=== PATIENT | male | born 1980 | race Caucasian/White ===

== ENCOUNTER 2024-01-14 15:04 | Emergency (ER) | payer BC, SELFPAY ==
[2024-01-14 15:05] VITALS: BP 169/102
--- NOTE | 2024-01-14 15:49 | ED.GENMED ---
History of Present Illness
<Mariela Reyes PA-C - Last Filed: 01/14/24 19:51>
General
Chief Complaint: Musculo-Skeletal Complaint
Source: patient
Exam Limitations: none
Time Seen by Provider: 01/14/24 15:48
Nursing documentation reviewed up to this point in time: agreed with
Travel History
Have you had any contact with someone who has COVID-19?: No
Do you have any symptoms of coronavirus? Fever > 100 degrees, chills, cough, shortness of breath, sore throat, loss of taste or smell, muscle aches, or headache?: No
History of Present Illness
History of Present Illness:
This is a 43 y/o male with no PMH presenting to the ER today with left hand pain following a crush injury. This injury occurred last week. He states he was catching a box with his left hand when he caught it and his hand bent back and the box landed
on his hand. He initially did not have much pain and first and thought nothing of it, but subsequently developed significant hand pain and swelling over the following days. He states that he was seen at urgent care who did an x-ray which was normal
and he was started on Voltaren tablets. He states that he used this as well as ibuprofen and acetaminophen and has had no relief. He denies pain elsewhere, denies head trauma, denies other injuries. Patient denies parestheias.
Past History
<Mariela Reyes PA-C - Last Filed: 01/14/24 19:51>
Past History
ED Past Medical History: None
ED Past Surgical History: None
Social History
Tobacco: Non-smoker
Alcohol: Daily
Personal:
Living: with family
Employment: Employed (Construction)
Review of Systems
<Mariela Reyes PA-C - Last Filed: 01/14/24 19:51>
Review of Systems
All Other Systems: ROS reviewed and negative except as documented in HPI and ROS
Phy Exam
<Mariela Reyes PA-C - Last Filed: 01/14/24 19:51>
Physical Exam
Physical Exam:
General: patient is well appearing and in no acute distress
Skin: warm and dry, no rashes or lesions
Cardiac: regular rate
Pulm: normal respiratory effort
Musculoskeletal: left hand swelling noted, mild tenderness to palpation of the carpals/metacarpals. 2+ left radial and ulnar pulses. Patient has full range of motion of left upper extremity. Cap refill <2 seconds.
Course
<Mariela Reyes PA-C - Last Filed: 01/14/24 19:51>
Vital Signs
Initial and Last Documented VS:
Initial Vital Signs
Temp Pulse Resp BP Pulse Ox
37.1 C 98 18 169/102 95
01/14/24 15:05 01/14/24 15:05 01/14/24 15:05 01/14/24 15:05 01/14/24 15:05
Last Documented Vital Signs
Temp Pulse Resp BP Pulse Ox
37.1 C 98 18 169/102 95
01/14/24 15:05 01/14/24 15:05 01/14/24 15:05 01/14/24 15:05 01/14/24 15:05
<Rosendo Woo MD - Last Filed: 01/14/24 23:12>
Vital Signs
Initial and Last Documented VS:
Initial Vital Signs
Temp Pulse Resp BP Pulse Ox
37.1 C 98 18 169/102 95
01/14/24 15:05 01/14/24 15:05 01/14/24 15:05 01/14/24 15:05 01/14/24 15:05
Last Documented Vital Signs
Temp Pulse Resp BP Pulse Ox
37.1 C 98 18 169/102 95
01/14/24 15:05 01/14/24 15:05 01/14/24 15:05 01/14/24 15:05 01/14/24 15:05
<Mariela Reyes PA-C - Last Filed: 01/14/24 19:51>
MDM/Problems Addressed
Differential Diagnosis Includes:
ddx include musculoskeletal sprain/strain, metacarpal fracture, muscular contusion, hematoma, ulnar collateral ligament injury, compartment syndrome
MDM/Problems Addressed:
hand pain
Chronic conditions affecting care:
n/a
Acute Exacerbation and/or Progression of Chronic Illness:
n/a
<SYBIL Mcclain Last Filed: 01/14/24 19:51>
*Radiology
Radiology exam reviewed: preliminary read by ED provider (reviewed urgent care x-ray, no acute fracture/dislocation)
*Pulse Oximetry
Patient hypoxic: no
*Critical Care Note
Total Time (30-74mins, 75-104mins- exclusive of procedures): Not Applicable
Data Reviewed
Review of Other/Old Records Reveals: Records (reviewed ER Physician documentation from 09/01/22)
Prescriptions/Medications Considered But Not Given:
n/a
Further Testing Considered But Not Given:
n/a
<SYBIL Mcclain Last Filed: 01/14/24 19:51>
Patient Management
Escalation/DeEscalation of care consider admission/obs:
43 y/o male with no PMH presenting to the ER today with left hand pain following a crush injury. X-ray negative for acute fracture/dislocation. Was seen at urgent care a few days ago and started on Voltaren, ice packs, acetaminophen which has not
been helping his symptoms. We will send patient home with a few oxycodone tablets to relieve his pain until he follows up with hand specialist. Patient stable for discharge.
ED Attending Note
<Mariela Reyes PA-C - Last Filed: 01/14/24 19:51>
-
Portions of this chart may have been created with voice recognition software.� Occasional wrong word or��sound alike� substitutions may have occurred due to the inherent limitations of voice recognition software.
<Rosendo Woo MD - Last Filed: 01/14/24 23:12>
ED Attending Note
Patient seen and examined by attending physician: Yes
ED Attending Note:
HPI: 43-year-old male presents for evaluation of left hand pain. Patient reports that a friend threw him a heavy box while they were doing some construction work. He says that it hit him in the thumb and bent his thumb back. He has had pain and
swelling around the base of the left thumb since. He had an x-ray at urgent care that was reportedly normal. Was told to take NSAIDs which has not significant improved his pain and he says his pain is uncontrolled which prompted him to come to the
emergency room. He denies any other injuries.
ROS: Positive for left hand/thumb pain; negative for numbness, weakness, tingling
Physical exam:
General: Well appearing and non-toxic
HEENT: protecting airway
Neck: appears supple
CV: No evidence of cyanosis; good strong left radial pulse
Resp: No accessory muscle use
Abd: Non-distended
Extremities: Patient has some swelling of the thenar eminence and around the base of the left thumb; he does have some tenderness in the anatomic snuffbox along the thenar eminence and markedly along the UCL
Neuro: Alert; radial, median, ulnar nerve distribution intact left upper extremity
Psych: Normal affect
Skin: Intact
Differential diagnosis: Fracture, dislocation, sprain, gamekeeper's thumb/UCL injury
Medical decision makin-year-old male presents for evaluation of left hand pain. Had an x-ray at urgent care that was negative for fracture, has been taking NSAIDs without adequate pain control. Vital signs normal. Exam as above. Reviewed
x-ray from urgent care which showed no fracture or dislocation on my independent review. Suspect likely sprain or UCL injury. He is already in a volar splint from urgent care which we we have reapplied (was removed for examination). Will
prescribe pain control. Provided referral to hand surgery�patient has an appointment next week scheduled. Spoke about return precautions all questions answered.
Chronic conditions affecting care: N/A
Acute exacerbation or progression of chronic illness: Acutely hypertensive
History source: Patient
Data reviewed: Reviewed external x-ray from urgent care
Medications/testing considered: N/A
Social determinants of health: N/A
Discussion with other providers: N/A
Discharge Plan
Departure
Patient Disposition: Home (Routine Discharge)
Date of Disposition: 01/14/24
Time of Disposition: 16:20
Patient with high blood pressure during this ER visit?: Yes
Discharge Problem:
Injury of hand, left
Instructions: Thumb Sprain ED
Prescriptions:
New
oxycodone 5 mg tablet
5 mg PO Q8H PRN (Reason: Pain) Qty: 7 0RF
No Action
cyclobenzaprine 10 mg tablet
10 mg PO TID PRN (Reason: muscle spasm, rib pain) Qty: 30 0RF
Referrals:
Thomas Day MD [Family Provider] -
Renard Hoffman MD [Active] - Keep scheduled appt (01/20/24)
Activity Restrictions/Additional Instructions:
FOR PAIN YOU CAN TAKE:
TYLENOL (ACETAMINOPHEN) 500-1000MG EVERY 6 HOURS NEEDED
MOTRIN (IBUPROFEN) 400-600MG EVERY 6 HOURS NEEDED
YOU SHOULD ALSO USE ICE AND KEEP YOUR HAND ELEVATED.
IF THESE MEDICATIONS NOT ENOUGH YOU CAN TAKE OXYCODONE PRESCRIBED FOR BREAKTHROUGH PAIN.
Thank you for visiting the Emergency Department at [facility].
1. Please schedule a follow up appointment as directed. Call first thing tomorrow morning to make an appointment.
2. If indicated, please take your medications as instructed and indicated on discharge paperwork.
3. If any of your symptoms do not improve, or persist, or become more severe within 6-12 hours, please return to the emergency department for further care.
4. Please return to the emergency department if you develop a headache, neck pain/stiffness, fever greater than 100.4F, chest pain, shortness of breath, persistent nausea, vomiting, slurred speech, difficulty walking, numbness/tingling, weakness,
signs of infection or any other symptoms that are worrisome to you.
Please call [phone] if you have any questions.
Interventions
Interventions:
*Risk Screen - Suicide Last Done: 01/14/24 15:09
*General Assessment Last Done: 01/14/24 15:09
*Neglect/Abuse Screening Last Done: 01/14/24 15:09
ED- Fall Risk Assessment Last Done: 01/14/24 16:28
*ED COVID-19 Vaccine History Last Done: 01/14/24 16:28
*Nursing Disposition Last Done: 01/14/24 16:28
ED-Musculoskeletal Assessment Last Done: 01/14/24 15:26
Discharge Date and Time
Discharge Date/Time: 01/14/24 16:29
== END 2024-01-14 16:29 | disposition home or self-care (01) ==
LOC: EMR 15:04
PROVIDERS: EMERGENCY PHYSICIAN Emergency Medicine; FAMILY PHYSICIAN Family Medicine
DX: S69.92XA Unspecified injury of left wrist, hand and finger(s), initial encounter (principal); W22.8XXA Striking against or struck by other objects, initial encounter; Y99.0 Civilian activity done for income or pay; R03.0 Elevated blood-pressure reading, without diagnosis of hypertension
CPT/HCPCS: 99283; 29125